=== PATIENT | male | born 1975 | race Caucasian/White ===

== ENCOUNTER 2021-09-10 22:38 | Emergency (ER) | payer SELFPAY ==
--- NOTE | 2021-09-10 23:10 | NUR ---
PATIENT WAS CALLED TO BE TRAIGED BUT WAS NOT PRESENT IN THE WAITING ROOM OR OUTSIDE OF ER
--- NOTE | 2021-09-10 23:30 | NUR ---
PATIENT WAS CALLED TO BE TRIAGED BUT WAS NOT PRESENT IN THE [facility] ROOM OR OUTSIDE OF ER.
--- NOTE | 2021-09-10 23:45 | NUR ---
PATIENT WAS NOT TRIAGED OR SEEN BY [facility].
== END 2021-09-10 23:45 | disposition left against medical advice (07) ==
LOC: ER 22:51
DX: Z53.21 Procedure and treatment not carried out due to patient leaving prior to being seen by health care provider (principal)

== ENCOUNTER 2021-09-28 19:00 | Emergency (ER) | payer MEDICAID | END 2021-09-28 19:35 | disposition left against medical advice (07) | LOC: ER 19:05 | DX: Z53.21 Procedure and treatment not carried out due to patient leaving prior to being seen by health care provider (principal) ==

== ENCOUNTER 2022-01-12 22:44 | Emergency (ER) | payer MEDICAID ==
[~2022-01-12] VITALS: Ht 172.7 cm; Wt 70.3 kg
[2022-01-12] MEDS ORDERED: LIDOCAINE HCL 2% 20 ML VIAL TP ONE (23:00)
[2022-01-12] MEDS ORDERED: LIDOCAINE HCL 2% 20 ML VIAL ONE (23:01)
--- NOTE | 2022-01-12 23:14 | NUR ---
Patient is a/ox4, NAD noted
[2022-01-12] MEDS ORDERED: BACITRACIN ZINC OINT 15 GM TUBE ONE (23:45)
--- NOTE | 2022-01-12 23:55 | NUR ---
Patient discharged to home in stable condition. Written and verbal after care instructions given. Patient verbalizes understanding of instructions. Stressed follow up or return to ER for worsening s/s. Patient is a/ox4, NAD noted. Patient is able to walk with steady gait
[2022-01-13 00:09] VITALS: BP 118/76
== END 2022-01-12 23:55 | disposition home or self-care (01) ==
LOC: ER 22:47
DX: S61.012A Laceration without foreign body of left thumb without damage to nail, initial encounter (principal); X78.0XXA Intentional self-harm by sharp glass, initial encounter; Y92.89 Other specified places as the place of occurrence of the external cause; F17.210 Nicotine dependence, cigarettes, uncomplicated
CPT/HCPCS: 99282; 99406; J3490; A4663